=== PATIENT | female | born 1990 ===

== ENCOUNTER 2021-05-29 17:36 | Emergency (ER) | payer MEDICAID ==
[~2021-05-29] VITALS: Ht 170.2 cm; Wt 65.0 kg
[2021-05-29 17:44] VITALS: BP 89/59
--- NOTE | 2021-05-29 19:05 | NUR ---
called in the lobby, no answer
--- NOTE | 2021-05-29 19:25 | NUR ---
called in the lobby, no answer
--- NOTE | 2021-05-29 19:45 | NUR ---
called in the lobby, no answer.
== END 2021-05-29 20:01 | disposition left against medical advice (07) ==
LOC: ED 19:55
DX: R10.9 Unspecified abdominal pain (principal); Z53.21 Procedure and treatment not carried out due to patient leaving prior to being seen by health care provider